=== PATIENT | male | born 1945 | race Caucasian/White ===

== ENCOUNTER 2025-04-27 11:04 | Emergency (ER) | payer OTHER, SELFPAY ==
[2025-04-27 11:10] VITALS: BP 140/82
[2025-04-27 11:17] VITALS: BMI 24.8
--- NOTE | 2025-04-27 12:07 | ED.GENMED ---
History of Present Illness
General
Chief Complaint: Musculo-Skeletal Complaint
Source: patient
Time Seen by Provider: 04/27/25 11:21
History of Present Illness
History of Present Illness:
79-year-old male presenting to the emergency department for a few days of nontraumatic left lateral knee pain that he states is painful during the day but is more painful at night and keeps him awake. He states he cannot think of anything that may
have exacerbated or triggered the pain. Denies any history of similar. No fevers or infectious symptoms, no calf pain or tenderness. No focal weakness or numbness and no color changes to the extremity. Patient has been taking some Aleve with
slight relief of symptoms. No other concerns.
Past History
Past History
ED Past Medical History: CAD
ED Past Surgical History: Appendectomy and Cardiac
Social History
Tobacco: Smoker
Alcohol: None
Drug: None
Personal:
Living: with family
Review of Systems
Review of Systems
All Other Systems: ROS reviewed and negative except as documented in HPI and ROS
Phy Exam
Physical Exam
Physical Exam:
GENERAL: Alert , in no apparent distress
EYE: conjunctiva clear
Head: Normocephalic atraumatic
NECK: Supple,
ENT: mmm.
LUNGS: no acute respiratory distress
NEUROLOGICAL: Alert and oriented
SKIN: Warm and dry, skin intact.
MUSCULOSKELETAL: Left knee: No obvious deformity, erythema, edema, ecchymosis, abrasions or lacerations. No joint effusion. Patient allows for full active and passive range of motion without much difficulty. No calf tenderness or edema.
Extremity is warm well-perfused and neurovascularly intact.
PSYCH: Normal and appropriate interaction.
Scores
Heart Failure Risk
Heart Failure Risk Score: Not Applicable
Heart Score for Chest Pain Patients
STEMI patient?: Not applicable
Withdrawal Assessment of Alcohol
Withdrawal Assessment Completed?: Not applicable
Course
Orders/Labs/Results
Orders:
Orders
04/27/25 11:21
CR Knee - Left 4 Or More View* Urgent
Comment:
Reason For Exam: pain
Vital Signs
Initial and Last Documented VS:
Initial Vital Signs
Temp Pulse BP Pulse Ox
97.3 F 91 140/82 99
04/27/25 11:10 04/27/25 11:10 04/27/25 11:10 04/27/25 11:10
Last Documented Vital Signs
Temp Pulse BP Pulse Ox
97.3 F 91 140/82 99
04/27/25 11:10 04/27/25 11:10 04/27/25 11:10 04/27/25 12:08
MDM/Problems Addressed
Differential Diagnosis Includes:
Sprain
OA
No mechanism for frature
Gout
DVT
PVD/PAD
Septic Joint
MDM/Problems Addressed:
79-year-old male presenting to the ER for evaluation of left lateral knee pain. No mechanism for injury. No focal weakness or numbness. No findings to suggest arterial complication. X-ray of the from triage shows no acute fractures or
abnormalities. Patient can continue NSAIDs at home. Will also trial a steroid taper for pain as needed. Encourage close follow-up with Ortho. Stable for discharge
*Radiology
Radiology exam reviewed: preliminary read by ED provider (No fracture or acute abnormalities)
*Pulse Oximetry
SaO2: 99
Oxygen Mode of Delivery: Room air
Patient hypoxic: no
*Critical Care Note
Total Time (30-74mins, 75-104mins- exclusive of procedures): Not Applicable
ED Attending Note
-
Portions of this chart may have been created with voice recognition software.� Occasional wrong word or��sound alike� substitutions may have occurred due to the inherent limitations of voice recognition software.
Discharge Plan
Departure
Patient Disposition: Home (Routine Discharge)
Date of Disposition: 04/27/25
Time of Disposition: 12:08
Patient with high blood pressure during this ER visit?: Yes
Discharge Problem:
Knee pain, left
Instructions: Knee Pain (DC)
Prescriptions:
New
prednisone 10 mg Tablet
See Rx Instructions .ROUTE .COMPLEX Qty: 30 0RF
Rx Instructions:
Take By Mouth:
40 mg daily x3 days, 30 mg daily x3 days,
20 mg daily x3 days, 10 mg daily x3 days.
No Action
aspirin 81 mg Tablet,Chewable
81 mg PO DAILY Qty: 0 0RF
potassium 99 mg Tablet
99 mg PO DAILY
ibuprofen [Advil] 200 mg Tablet
400 mg PO Q6HPRN PRN (Reason: mild pain)
Bioflex 313-07-47-40 mg Tablet
1 tab PO DAILY
magnesium oxide 400 mg magnesium Tablet
400 mg PO DAILY
atorvastatin [Lipitor] 40 mg tablet
40 mg PO DAILY
metoprolol tartrate 25 mg tablet
25 mg PO DAILY
Referrals:
Tonny Rios DO [Family Provider, Family Practice]
Zeus Saucedo MD [Active, Orthopedics]
Interventions
Interventions:
*Risk Screen - Suicide Last Done: 04/27/25 11:13
*General Assessment Last Done: 04/27/25 11:13
*Neglect/Abuse Screening Last Done: 04/27/25 11:13
*ED COVID-19 Vaccine History Last Done: 04/27/25 11:14
*ED Influenza Vaccine History Last Done: 04/27/25 11:14
*Nursing Disposition Last Done: 04/27/25 12:13
ED-Musculoskeletal Assessment Last Done: 04/27/25 11:21
Discharge Date and Time
Discharge Date/Time: 04/27/25 12:16
Print Language: BHUTANESE
== END 2025-04-27 12:16 | disposition home or self-care (01) ==
LOC: EMR 11:04
PROVIDERS: EMERGENCY PHYSICIAN Student in an Organized Health Care Education/Training Program; FAMILY PHYSICIAN Family Medicine
DX: M25.562 Pain in left knee (principal); I25.10 Atherosclerotic heart disease of native coronary artery without angina pectoris; F17.200 Nicotine dependence, unspecified, uncomplicated; Z90.49 Acquired absence of other specified parts of digestive tract
CPT/HCPCS: 99283; 73564

== ENCOUNTER 2025-05-10 08:39 | Emergency (ER) | payer OTHER, SELFPAY ==
[2025-05-10 08:40] VITALS: BP 145/67
[2025-05-10 08:52] VITALS: BMI 25.4
--- NOTE | 2025-05-10 08:57 | ED.GENMED ---
History of Present Illness
General
Chief Complaint: Musculo-Skeletal Complaint
Source: patient and records
Exam Limitations: none
Time Seen by Provider: 05/10/25 08:45
History of Present Illness
History of Present Illness:
79yoM with a history of coronary artery disease, hypertension, and hyperlipidemia presenting for evaluation of atraumatic bilateral ankle pain. Patient woke up in the middle of the night around 3am this morning with significant pain in his
bilateral ankle region. He got out of bed due to his symptoms and was walking around. He took 2 Aleve with improvement. Pain is now more of a soreness and only a 1-2/10 in severity. He denies any trauma and has not increased his activity level
recently. He was seen in the ED about 2 weeks ago for L knee pain which has since resolved after taking prednisone. X-rays were negative for acute osseous abnormality. Patient has not followed up with anyone since discharge. He is otherwise
asymptomatic and denies any fevers, joint swelling, rash, paresthesias, calf pain.
Past History
Past History
ED Past Medical History: CAD
ED Past Surgical History: Appendectomy and Cardiac
Social History
Tobacco: Smoker
Alcohol: None
Drug: None
Personal:
Living: with family
Phy Exam
General Physical Exam
General Presentation: well appearing and no apparent distress
General Skin: warm and dry
General Habitus: normal
General Mental: alert
ENT Exam
ENT Exam: normocephalic
Pulmonary Exam
Pulmonary Exam: no respiratory distress
Neurological Exam
Neurological Exam: alert
Orion Coma Scale
Eye Opening: Spontaneous
Verbal Response: Oriented
Motor Response: Obeys Commands
GCS Total Score: 15
Musculoskeletal Exam
Musculoskeletal Exam: other (Ankles appear normal bilaterally without skin changes or edema. No tenderness to palpation of joints. ROM of both ankles intact and non-painful. No calf tenderness. 2+ DP pulses bilaterally and sensation intact.)
Skin Exam
Skin Exam: normal color and warm/dry
Psychiatric Exam
Psychiatric Exam: normal mood/affect
Course
Orders/Labs/Results
Orders:
Orders
05/10/25 08:56
CR Ankle - Left Min 3 Views Urgent
Comment:
Reason For Exam: pain, no injury
CR Ankle - Right Min 3 Views * Urgent
Comment:
Reason For Exam: pain, no injury
Vital Signs
Initial and Last Documented VS:
Initial Vital Signs
Temp Pulse Resp BP Pulse Ox
97.5 F 77 18 145/67 99
05/10/25 08:40 05/10/25 08:40 05/10/25 08:40 05/10/25 08:40 05/10/25 08:40
Last Documented Vital Signs
Temp Pulse Resp BP Pulse Ox
98.3 F 68 18 139/75 99
05/10/25 10:16 05/10/25 10:16 05/10/25 10:16 05/10/25 10:16 05/10/25 10:16
MDM/Problems Addressed
Differential Diagnosis Includes:
79yoM here with atraumatic bilateral ankle pain that began last night. Now significantly improved after taking Aleve. Lower extremities appear normal without any skin changes or pitting edema. No tenderness to palpation of joint or with ROM.
Palpable pulses present bilaterally. No calf tenderness. Differential diagnosis includes: osteoarthritis, inflammatory arthritis, sprain, doubt fracture, no clinical evidence of DVT or acute arterial occlusion
X-rays of both ankles obtained. No acute osseous abnormalities noted there are only mild degenerative changes. On reassessment, pain continues to be minimal. Patient stable for discharge. He was advised to continue to use Aleve as needed. He
was advised to follow-up with his PCP and orthopedics if symptoms persist.
*Pulse Oximetry
SaO2: 99
Oxygen Mode of Delivery: Room air
Patient hypoxic: no
*Critical Care Note
Total Time (30-74mins, 75-104mins- exclusive of procedures): Not Applicable
ED Attending Note
-
Portions of this chart may have been created with voice recognition software.� Occasional wrong word or��sound alike� substitutions may have occurred due to the inherent limitations of voice recognition software.
Discharge Plan
Departure
Patient Disposition: Home (Routine Discharge)
Date of Disposition: 05/10/25
Time of Disposition: 10:06
Patient with high blood pressure during this ER visit?: Yes
Discharge Problem:
Acute bilateral ankle pain
Instructions: Muscle, joint, and bone pain (DC)
Prescriptions:
No Action
aspirin 81 mg Tablet,Chewable
81 mg PO DAILY Qty: 0 0RF
potassium 99 mg Tablet
99 mg PO DAILY
ibuprofen [Advil] 200 mg Tablet
400 mg PO Q6HPRN PRN (Reason: mild pain)
Bioflex 956-74-49-40 mg Tablet
1 tab PO DAILY
magnesium oxide 400 mg magnesium Tablet
400 mg PO DAILY
atorvastatin [Lipitor] 40 mg tablet
40 mg PO DAILY
metoprolol tartrate 25 mg tablet
25 mg PO DAILY
prednisone 10 mg Tablet
See Rx Instructions .ROUTE .COMPLEX Qty: 30 0RF
Rx Instructions:
Take By Mouth:
40 mg daily x3 days, 30 mg daily x3 days,
20 mg daily x3 days, 10 mg daily x3 days.
Referrals:
Tonny Rios DO [Family Provider, Family Practice]
Messi Allred MD [Active, Orthopedics]
Activity Restrictions/Additional Instructions:
Continue taking Aleve as needed.
Please follow-up with your family doctor and orthopedics if symptoms persist. Return to the ER with any new or worsening symptoms.
Interventions
Interventions:
*Risk Screen - Suicide Last Done: 05/10/25 08:40
*General Assessment Last Done: 05/10/25 08:52
*Neglect/Abuse Screening Last Done: 05/10/25 08:40
*ED- Fall Risk Assessment Last Done: 05/10/25 08:52
*ED COVID-19 Vaccine History Last Done: 05/10/25 08:52
*ED Influenza Vaccine History Last Done: 05/10/25 08:52
*Nursing Disposition Last Done: 05/10/25 10:16
ED-Musculoskeletal Assessment Last Done: 05/10/25 08:52
Discharge Date and Time
Discharge Date/Time: 05/10/25 10:18
Print Language: SERBIAN
[2025-05-10 10:16] VITALS: BP 139/75
--- NOTE | 2025-05-10 10:17 | EDRN ---
Reviewed discharge instructions with patient. Verbalized understanding. Taken to lobby in wheelchair.
== END 2025-05-10 10:18 | disposition home or self-care (01) ==
LOC: EMR 08:39
PROVIDERS: EMERGENCY PHYSICIAN Student in an Organized Health Care Education/Training Program; FAMILY PHYSICIAN Family Medicine
DX: M25.571 Pain in right ankle and joints of right foot (principal); M25.572 Pain in left ankle and joints of left foot; M19.071 Primary osteoarthritis, right ankle and foot; M19.072 Primary osteoarthritis, left ankle and foot; I25.10 Atherosclerotic heart disease of native coronary artery without angina pectoris; I10 Essential (primary) hypertension; E78.5 Hyperlipidemia, unspecified; F17.200 Nicotine dependence, unspecified, uncomplicated; Z79.82 Long term (current) use of aspirin
CPT/HCPCS: 99283; 73610